=== PATIENT | male | born 1945 | race Caucasian/White ===

== ENCOUNTER 2020-02-24 16:08 | Emergency (ER) | payer OTHER ==
[~2020-02-24] VITALS: Ht 172.7 cm; Wt 92.0 kg
--- NOTE | 2020-02-24 16:29 | NUR ---
PATIENT BIB [facility] WITH CHIEF C/O DIZZINESS AND NAUSEA. PER EMS PATIENT WAS IN THE SHOWER THIS MORNING AND STARTED FEELING DIZZY, WEAK AND NAUSEATED. PATIENT REPORTS 2 EPISODES OF EMESIS, AFTER THE SECOND EPISODE STARTED EXPERIENCING RLQ PAIN THAT RADIATES TO HIS R-LUMBAR. PER EMS PATIENTS BLOOD SUGAR EN ROUTE IS 307, 200 MCG FENTANYL GIVEN EN ROUTE THROUGH 22 GAUGE IV STARTED IN LEFT HAND. EMS REPORTS 12 LEAD SHOWING R-BBB, AND ST DEPRESSION. PATIENT DENIES FEELING NAUSEATED OR DIZZY AT THIS TIME, PAIN LEVEL IS A 4/ IN RLQ. HR 88 ON MONITOR. NO SIGNS OF ACUTE DISTRESS, SIDE RAILS UP X2, CALL LIGHT WITHIN REACH. RUG BACKING STENCILER ATTACHED.
[2020-02-24] MEDS ORDERED: LISI-167 PO (16:33)
[2020-02-24] MEDS ORDERED: PRAM1TAB PO (16:33)
[2020-02-24] MEDS ORDERED: METF500T17 PO (16:33)
[2020-02-24] MEDS ORDERED: SITA100T PO (16:33)
[2020-02-24] MEDS ORDERED: SIMV20TA19 PO (16:33)
--- NOTE | 2020-02-24 17:12 | NUR ---
ERMD AT BEDSIDE FOR EVALUATION.
[2020-02-24] MEDS ORDERED: SODIUM CHLORIDE FLUSH 10ML SYR IVF ONE (17:30)
[2020-02-24] MEDS ORDERED: ONDANSETRON 2MG/ML, 2ML IVPush ONE (17:30)
[2020-02-24] MEDS: PLEASE ENTER ALLERGIES MC SCH ×2 (17:30→18:47)
[2020-02-24] MEDS ORDERED: SODIUM CHLORIDE 0.9% 1,000ML IVBOLUS ONE (17:30)
[2020-02-24] MEDS ORDERED: HYDROmorphone 2 MG/ML, 1ML IVPush PRN ×2 (17:30→19:00)
[2020-02-24] MEDS ORDERED: ONDANSETRON 2MG/ML, 2ML ONE (17:44)
[2020-02-24] MEDS ORDERED: HYDROmorphone 2 MG/ML, 1ML ONE (17:56)
[2020-02-24 18:01] LABS: BASOPHILS % (AUTO) 1 % (0-1); EOSINOPHILS % (AUTO) 0 % (1-7); LYMPHOCYTES % (AUTO) 7 % (22-44); MEAN CORPUSCULAR HEMOGLOBIN 29.5 pg (27.5-34.5); MEAN PLATELET VOLUME 9.1 fL (7.4-10.4); MONOCYTES % (AUTO) 4 % (2-9); NEUTROPHILS % (AUTO) 88 % (42-75); PLATELET COUNT 201 x10^3/uL (130-400); RED BLOOD COUNT 4.76 x10^6/uL (4.38-5.82); RED CELL DISTRIBUTION WIDTH 14.2 % (9.4-14.8)
--- NOTE | 2020-02-24 18:02 | NUR ---
20 GAUGE IV STARTED RIGHT AC, BLOOD DRAWN AND SENT TO LAB. PATIENT C/O 10/10 RLQ PAIN, MEDICATED PER eMAR, 1000 mL BOLUS HUNG. AT BEDSIDE, CONNECTED TO BILLING SPEC, SIDE RAILS UP X2, CALL LIGHT WTIHIN REACH.
[2020-02-24 18:13] LABS: ALANINE AMINOTRANSFERASE 78 U/L (12-78); ALBUMIN 3.5 g/dL (3.4-5.0); ANION GAP 4 mmol/L (5-15); CALCIUM 9.2 mg/dL (8.5-10.1); CHLORIDE 109 mmol/L (98-107)
[2020-02-24 18:15] LABS: ALKALINE PHOSPHATASE 147 U/L (45-117); BILIRUBIN,TOTAL 0.6 mg/dL (0.2-1.0); CREATININE 1.26 mg/dL (0.7-1.3); TOTAL PROTEIN 7.8 g/dL (6.4-8.2)
--- NOTE | 2020-02-24 18:19 | NUR ---
PATIENT PROVIDED URINAL FOR URINE SAMPLE.
[2020-02-24 18:29] LABS: MD SCAN
--- NOTE | 2020-02-24 18:39 | NUR ---
AIDE AT BEDSIDE TO DISCUSS POC. URINE COLLECTED AND SENT TO LAB.
[2020-02-24] MEDS ORDERED: KETOROLAC 30 MG/1 ML ONE (18:53)
[2020-02-24] MEDS ORDERED: KETOROLAC 30 MG/1 ML IVPush ONE (19:00)
[2020-02-24 19:10] LABS: ACETONE, SERUM Negative (Negative)
[2020-02-24 19:11] VITALS: BP 141/74
[2020-02-24 19:19] LABS: MICROSCOPIC AUTO
== END 2020-02-24 19:13 | disposition home or self-care (01) ==
LOC: ED 19:05
DX: N13.2 Hydronephrosis with renal and ureteral calculous obstruction (principal); N23 Unspecified renal colic; I45.10 Unspecified right bundle-branch block; I44.4 Left anterior fascicular block; I11.9 Hypertensive heart disease without heart failure; E11.9 Type 2 diabetes mellitus without complications; Z87.891 Personal history of nicotine dependence
CPT/HCPCS: 36415; 71045; 74176; 80053; 81001; 82010; 83605; 83690; 85025; 87040; 93005; 96361; 96374; 96375; 99285; J1170; J1885; J2405; J7030